=== PATIENT | female | born 1955 | race Caucasian/White ===

== ENCOUNTER 2025-03-21 15:49 | Emergency (ER) | payer OTHER ==
[~2025-03-21] VITALS: Ht 170.2 cm; Wt 69.0 kg
[2025-03-21 16:11] VITALS: TEMP 97.8
[2025-03-21 16:26] LABS: PLATELET COUNT (AUTO) 170 K/uL (150-450); RED BLOOD CELL COUNT(AUTO) 3.82 MIL/uL (4.00-5.20); RED CELL DISTRIBUTION WIDTH 12.7 % (11.5-14.5); WHITE BLOOD COUNT (AUTO) 6.8 K/uL (4.5-11.0)
[2025-03-21 16:37] LABS: CALCIUM, TOTAL 8.8 mg/dL (8.8-10.5); CREATININE 0.58 mg/dL (0.60-1.30); GLOMERULAR FILTR. RATE CALC > 60 mL/min (>60); GLUCOSE,RANDOM 110 mg/dL (70-110); SODIUM SERUM 142 mmol/L (136-145); UREA NITROGEN, BLOOD 14 mg/dL (7-18)
[2025-03-21 16:41] LABS: ASPARTATE AMINOTRANSFERASE 21.0 U/L (15-37); CREATINE KINASE, TOTAL ONLY 94.0 U/L (26-192); TOTAL PROTEIN, SERUM 7.1 g/dL (6.4-8.2)
[2025-03-21 16:46] LABS: TROPONIN I-HIGH SENSITIVITY 8 ng/L (<51)
[2025-03-21 18:00] LABS: COVID AG,FIA SOURCE NASAL SWAB
[2025-03-21 18:09] LABS: APPEARANCE,URINE CLEAR (CLEAR); GLUCOSE, URINE (UA) NEGATIVE (NEGATIVE); LEUKOCYTE ESTERASE ,URINE NEGATIVE (NEGATIVE); NITRATE,URINE NEGATIVE (NEGATIVE); OCCULT BLOOD,URINE NEGATIVE (NEGATIVE); PH,URINE DRUG SCREEN 6.0 (5.0-8.0); SPECIFIC GRAVITIY, URINE 1.008 (1.003-1.030)
[2025-03-21 18:15] LABS: ALCOHOL, URINE DRUG SCREEN NEGATIVE (NEGATIVE); AMPHET/METH SCREEN,URINE NEGATIVE (NEGATIVE); BARBITURATE SCREEN, URINE NEGATIVE (NEGATIVE); CANNABINOID SCREEN,URINE NEGATIVE (NEGATIVE); COCAINE SCREEN,URINE NEGATIVE (NEGATIVE); METHADONE SCREEN, URINE NEGATIVE (NEGATIVE)
[2025-03-21 18:17] LABS: SARS-COV2 (COVID) ANTIGEN,FIA Negative (Negative)
[2025-03-21 21:35] VITALS: BP 120/62; PULSE 75; RESP 18; O2SAT 99
== END 2025-03-21 23:00 ==
LOC: EMS 15:49
DX: R41.0 Disorientation, unspecified (principal); F51.5 Nightmare disorder; Z88.8 Allergy status to other drugs, medicaments and biological substances; Z20.822 Contact with and (suspected) exposure to COVID-19
CPT/HCPCS: 70450; 71045; 80048; 80076; 80307; 81003; 82140; 82550; 82962; 83880; 84484; 85025; 85610; 85730; 93005; 99285; 36415-L1; 36415-TC

== ENCOUNTER 2025-03-22 03:20 | Inpatient (IN) | payer MEDICARE, OTHER ==
[~2025-03-22] VITALS: Ht 157.5 cm; Wt 40.9 kg
[2025-03-22 12:11] VITALS: BP 113/62; PULSE 80; RESP 18; TEMP 97.6; O2SAT 98
[2025-03-22] MEDS ORDERED: INFLUENZA VIRUS VACCINE TVS (6MO+) 2025-26/PF 45 MCG/0.5 ML SYRINGE IM. ONE (12:15)
[2025-03-22 13:21] VITALS: BP 130/101; PULSE 84; RESP 16; TEMP 98; O2SAT 98
[2025-03-22] MEDS: MEMANTINE HCL 5 MG TABLET PO SCH (17:41)
[2025-03-22] MEDS ORDERED: DOCUSATE SODIUM 100 MG CAPSULE PO PRN (19:15)
[2025-03-22] MEDS ORDERED: BACITRACIN 28 GM OINTMENT TP PRN (19:15)
[2025-03-22] MEDS ORDERED: BENZOCAINE/MENTHOL [CEPACOL] LOZENGE PO PRN (19:15)
[2025-03-22] MEDS ORDERED: ONDANSETRON 4 MG TABLET PO PRN (19:15)
[2025-03-22] MEDS ORDERED: MAG HYDROX/ALUMINUM HYD/SIMETH ES 30 ML SUSPENSION UDCUP PO PRN (19:15)
[2025-03-22] MEDS ORDERED: OMEPRAZOLE 20 MG CAPSULE PO PRN (19:15)
[2025-03-22] MEDS ORDERED: MAGNESIUM HYDROXIDE SUSPENSION 30 ML UDCUP PO PRN (19:15)
[2025-03-22] MEDS ORDERED: PETROLATUM,WHITE 28 GM JELLY TP PRN (19:15)
[2025-03-22] MEDS ORDERED: LOPERAMIDE HCL 2 MG CAPSULE PO PRN (19:15)
[2025-03-22] MEDS ORDERED: ALBUTEROL SULFATE HFA 90 MCG/PUFF 8 GM INHALER IH PRN (19:15)
[2025-03-22 22:55] VITALS: BP 109/60; PULSE 87; RESP 16; TEMP 97.7; O2SAT 98
[2025-03-22 23:19] VITALS: BP 109/60; PULSE 87; RESP 18; TEMP 97.7; O2SAT 98
[2025-03-23 09:29] VITALS: BP 112/76; PULSE 98; RESP 18; TEMP 98.4; O2SAT 98
[2025-03-23] MEDS: LINACLOTIDE 145 MCG CAPSULE PO ONE (09:48)
[2025-03-23] MEDS: LINACLOTIDE 290 MCG CAPSULE PO ONE (09:48)
[2025-03-23 10:18] LABS: CHOL/HDL RATIO 2.1 (3.9-5.7); LDL CHOL (CALC.) 89.0 mg/dL (0-130)
[2025-03-23 20:29] VITALS: BP 121/81; PULSE 85; RESP 18; TEMP 98; O2SAT 98
[2025-03-23] MEDS: ESTROGENS,CONJUGATED 0.3 MG TABLET PO SCH (20:45)
[2025-03-24] MEDS: LINACLOTIDE 145 MCG CAPSULE PO SCH (06:36)
[2025-03-24 08:54] VITALS: BP 126/82; PULSE 99; RESP 18; TEMP 98.2; O2SAT 100
[2025-03-24 15:46] LABS: APPEARANCE,URINE CLEAR (CLEAR); GLUCOSE, URINE (UA) NEGATIVE (NEGATIVE); LEUKOCYTE ESTERASE ,URINE NEGATIVE (NEGATIVE); NITRATE,URINE NEGATIVE (NEGATIVE); OCCULT BLOOD,URINE SMALL (NEGATIVE); SPECIFIC GRAVITIY, URINE 1.021 (1.003-1.030)
[2025-03-24 16:04] LABS: SQUAMOUS EPITHELIAL CELL,UR Few /LPF (None Seen)
[2025-03-24] MEDS ORDERED: PREM3 PO (17:17)
[2025-03-24] MEDS ORDERED: LINA290C PO (17:17)
[2025-03-24] MEDS ORDERED: RIME75TA SL (17:17)
[2025-03-24] MEDS ORDERED: ATOG60TA PO (17:17)
[2025-03-24] MEDS ORDERED: *NON-FORMULARY MED [ENTER DRUG, DOSE, FREQ IN COMMENTS] CLINICAL PRN (17:30)
[2025-03-24] MEDS ORDERED: *NON-FORMULARY MED [ENTER DRUG, DOSE, FREQ IN COMMENTS] CLINICAL SCH (18:00)
[2025-03-24] MEDS: ATOGEPANT 60 MG PO SCH (18:50)
[2025-03-24 22:46] VITALS: BP 116/65; PULSE 100; RESP 18; O2SAT 100
[2025-03-25] MEDS: CITALOPRAM HYDROBROMIDE 20 MG TABLET PO SCH (09:00)
[2025-03-25 09:35] VITALS: BP 119/61; PULSE 85; RESP 18; TEMP 97.9; O2SAT 100
[2025-03-25 16:07] VITALS: BP 123/75; PULSE 89; RESP 18; TEMP 97.8; O2SAT 99
[2025-03-25] MEDS: IBUPROFEN 600 MG TABLET PO PRN (16:07)
[2025-03-25 17:07] VITALS: BP 125/78; PULSE 92; RESP 18; TEMP 97.9; O2SAT 98
[2025-03-25 21:47] VITALS: BP 120/80; PULSE 89; RESP 19; TEMP 98; O2SAT 97
[2025-03-26 13:45] VITALS: BP 119/61; PULSE 85; RESP 18; TEMP 97.9; O2SAT 100
[2025-03-26] MEDS: MEMANTINE HCL 10 MG TABLET PO SCH (16:27)
[2025-03-26 20:04] VITALS: BP 108/61; PULSE 84; RESP 19; TEMP 97.5; O2SAT 98
[2025-03-27 10:13] VITALS: BP 122/66; PULSE 89; RESP 18; TEMP 98; O2SAT 98
[2025-03-27] MEDS: ATOGEPANT 60 MG PO SCH (10:29)
[2025-03-27 10:40] VITALS: BP 122/66; PULSE 89; RESP 18; TEMP 98; O2SAT 98
[2025-03-27 11:38] VITALS: RESP 18
[2025-03-27 22:20] VITALS: BP 98/66; PULSE 100; RESP 17; TEMP 98.1; O2SAT 99
[2025-03-28 11:01] VITALS: BP 114/56; PULSE 111; RESP 18; TEMP 98.4; O2SAT 99
[2025-03-28] MEDS: MULTIVITAMINS WITH MINERALS, THERAPEUTIC TABLET PO SCH (13:54)
[2025-03-28 20:17] VITALS: BP 114/69; PULSE 89; RESP 18; TEMP 98.7; O2SAT 100
[2025-03-29 09:20] VITALS: BP 120/64; PULSE 85; RESP 18; TEMP 97.5; O2SAT 99
[2025-03-29 21:11] VITALS: BP 110/70; PULSE 84; RESP 18; TEMP 97.2; O2SAT 98
[2025-03-30 08:20] VITALS: BP 100/54; PULSE 119; RESP 18; TEMP 97.8; O2SAT 99
[2025-03-30 20:00] VITALS: BP 100/72; PULSE 100; RESP 18; TEMP 97.1; O2SAT 99
[2025-03-31 08:53] VITALS: BP 106/58; PULSE 91; RESP 18; TEMP 97.7; O2SAT 98
[2025-03-31 20:00] VITALS: BP 114/69; PULSE 96; RESP 18; TEMP 97.5; O2SAT 99
[2025-04-01 13:59] VITALS: BP 116/61; PULSE 73; RESP 18; TEMP 98.8; O2SAT 97
[2025-04-01] MEDS: ACETAMINOPHEN 325 MG TABLET PO PRN (17:39)
[2025-04-01] MEDS: RIMEGEPANT SULFATE 75 MG SL PRN (17:43)
[2025-04-01 21:33] VITALS: BP 108/71; PULSE 87; RESP 16; TEMP 97.4; O2SAT 98
[2025-04-01] MEDS: ZOLPIDEM TARTRATE 10 MG TABLET PO PRN (22:53)
[2025-04-01 23:53] VITALS: BP 110/63; PULSE 78; RESP 17; TEMP 97.9; O2SAT 95
[2025-04-02 08:05] VITALS: BP 110/56; PULSE 83; RESP 17; TEMP 98.4; O2SAT 98
[2025-04-02 17:26] VITALS: BP 116/63; PULSE 79; RESP 18; TEMP 97.3; O2SAT 98
[2025-04-02 20:04] VITALS: BP 101/60; PULSE 93; RESP 18; TEMP 97; O2SAT 95
[2025-04-03 10:26] VITALS: BP 119/64; PULSE 92; RESP 17; TEMP 98.6; O2SAT 99
[2025-04-03 11:05] VITALS: BP 119/64; PULSE 92; RESP 18; TEMP 98.6; O2SAT 96
[2025-04-03 11:26] VITALS: BP 124/72; PULSE 91; RESP 17; TEMP 98.7; O2SAT 98
[2025-04-03 18:20] VITALS: BP 135/79; PULSE 73; RESP 17; TEMP 98
[2025-04-03 19:20] VITALS: RESP 18
[2025-04-03 20:18] VITALS: BP 119/74; PULSE 85; RESP 18; TEMP 98.6; O2SAT 100
[2025-04-04 08:05] VITALS: BP 117/67; PULSE 80; RESP 17; TEMP 98; O2SAT 98
[2025-04-06 10:07] LABS: LEAD WHOLE BLOOD <1.0 ug/dL (0.0-3.4)
[2025-04-07 14:07] LABS: ARSENIC BLOOD 2 ug/L (0-9); MERCURY BLOOD <1.0 ug/L (0.0-14.9)
== END 2025-04-04 08:30 | disposition short-term general hospital (02) | DRG 885 ==
LOC: B2X 08:20 → 3EX 20:46 → 3EI 04-03 23:11
PROVIDERS: ADMIT Psychiatry & Neurology Psychiatry; ATTEND Psychiatry & Neurology Psychiatry
DX: F20.9 Schizophrenia, unspecified (principal); F03.94 Unspecified dementia, unspecified severity, with anxiety; G47.00 Insomnia, unspecified; I10 Essential (primary) hypertension; K21.9 Gastro-esophageal reflux disease without esophagitis; M19.90 Unspecified osteoarthritis, unspecified site; R26.9 Unspecified abnormalities of gait and mobility; Z79.899 Other long term (current) drug therapy; Z88.8 Allergy status to other drugs, medicaments and biological substances
CPT/HCPCS: 80061; 81001; 82175; 83036; 83655; 83825; 84436; 84443; 86592; 87081; 90686; 92610; 97162; 97166; G0378